=== PATIENT | female | born 1950 | race Caucasian/White ===

== ENCOUNTER 2016-06-28 09:06 | Emergency (ER) | payer MEDICARE ==
[~2016-06-28] VITALS: Ht 165.1 cm; Wt 83.2 kg
[~2016-06-28 09:06] MED LIST: AMBIEN 10MG10 MG PO; AMOXICILLIN 50500 MG PO; AMOXICILLIN 8751 TAB PO; CEFTIN250 M1 PO; CELEBREX 200MG200 MG PO; CEPHALEXIN500 M1 PO; KLONOPIN 0.5MG0.5 MG PO; LORTAB 5/500 501 TAB PO; NO HOME MEDICATIONS; NORCO 325 MG-51 TAB PO; NORCO 325 MG-7.1 TAB PO; PEPCID 20MG TAB20 MG PO; PERCOCET 5/321 UDTAB PO; PREDNISONE20 MG PO; PRILOSEC10 MG PO; PROZAC 10MG10 MG PO; PROZAC 20MG20 MG PO; PYRIDIATE200 MG PO; TRAMADOL50 MG PO
[2016-06-28 09:08] VITALS: BP 140/81; TEMP 98.7
[2016-06-28] MEDS ORDERED: LIPITOR20 MG PO (09:11)
[2016-06-28] MEDS ORDERED: POLYMYXIN B/TRIMETH OS (09:57)
[2016-06-28 10:13] VITALS: PULSE 87
== END 2016-06-28 10:13 | disposition home or self-care (01) ==
LOC: COL.ER 09:06
DX: S05.02XA Injury of conjunctiva and corneal abrasion without foreign body, left eye, initial encounter (principal); X58.XXXA Exposure to other specified factors, initial encounter; Y92.322 Soccer field as the place of occurrence of the external cause; R51 Headache

== ENCOUNTER → 2017-01-13 | Outpatient (CLI) | payer MEDICARE ==
[~2017-01-13] MED LIST changes: +LIPITOR20 MG PO; +POLYMYXIN B/TRIMETH OS
== END ==
LOC: COL.RAD 09:03
DX: Z13.6 Encounter for screening for cardiovascular disorders (principal)

== ENCOUNTER → 2017-01-18 | Outpatient (CLI) | payer MEDICARE | LOC: MC.RAD 11:20 | DX: Z12.31 Encounter for screening mammogram for malignant neoplasm of breast (principal) ==

== ENCOUNTER 2017-08-23 18:11 | Emergency (ER) | payer MEDICARE ==
[~2017-08-23] VITALS: Ht 165.1 cm; Wt 81.8 kg
[2017-08-23 18:19] VITALS: TEMP 100.2
[2017-08-23 18:47] LABS: BASO % 0.5 % (0.0-2.0); EOS # 0.2 (0.0-0.7); EOS % 2.1 % (0-4.0); GRAN # 4.2 (1.4-6.5); HEMATOCRIT 40.5 % (37.0-47.0); HEMOGLOBIN 13.5 g/dl (12.5-16.0); LYMPH # 2.4 (1.2-3.4); LYMPH % 31.2 % (20.0-51.0); MEAN CELL VOLUME 86 fl (80.0-100.0); MEAN CORPUSCULAR HEMOGLOBIN 29 pg (27.0-31.0); MEAN CORPUSCULAR HGB CONC 33 g/dl (33.0-37.0); MEAN PLATELET VOLUME 10.2 fl (7.4-10.4); MONO # 0.9 (0.1-0.6); MONO % 11.1 % (1.7-9.3); PLATELET COUNT 223 K/mm3 (130-400); RED BLOOD COUNT 4.73 M/mm3 (4.10-5.30); REDCELL DISTRIBUTION WIDTH-CV 12.8 % (11.5-14.5)
[2017-08-23 19:02] LABS: ALBUMIN 3.9 gm/dL (3.5-5.0); C-REACTIVE PROTEIN 5.2 mg/dL (0.0-0.9); CALCIUM 9.4 mg/dL (8.4-10.2); CREATININE, serum 0.75 mg/dL (0.52-1.25); POTASSIUM 3.6 mmol/L (3.4-5.0); TOTAL PROTEIN 8.8 gm/dL (6.4-8.2)
[2017-08-23 19:10] LABS: ERYTHROCYTE SEDIMENTATION RATE 57 mm/hr (0-30)
[2017-08-23] MEDS ORDERED: PREDNISONE20 MG PO (19:22)
[2017-08-23 19:39] VITALS: BP 130/81; PULSE 65
== END 2017-08-23 19:40 | disposition home or self-care (01) ==
LOC: COL.ER 18:11
PROVIDERS: Emergency Medicine
DX: M54.2 Cervicalgia (principal); E78.5 Hyperlipidemia, unspecified; Z86.79 Personal history of other diseases of the circulatory system
CPT/HCPCS: J7512

== ENCOUNTER 2018-05-02 16:57 | Inpatient (IN) | payer MEDICARE ==
[~2018-05-02] VITALS: Ht 165.1 cm; Wt 78.7 kg
[2018-05-02 17:22] LABS: BASO % 0.2 % (0.0-2.0); GRAN # 9.9 (1.4-6.5); GRAN % 85.1 % (42.2-75.2); HEMOGLOBIN 14.6 g/dl (12.5-16.0); LYMPH # 1.2 (1.2-3.4); MEAN CELL VOLUME 85 fl (80.0-100.0); MEAN CORPUSCULAR HEMOGLOBIN 28 pg (27.0-31.0); MEAN CORPUSCULAR HGB CONC 32 g/dl (33.0-37.0); MEAN PLATELET VOLUME 11.2 fl (7.4-10.4); MONO # 0.5 (0.1-0.6); PLATELET COUNT 248 K/mm3 (130-400)
[2018-05-02 17:49] LABS: PROTHROMBIN TIME 11.7 SECONDS (9.7-12.8)
[2018-05-02 17:56] LABS: ALANINE AMINOTRANSFERASE 11 U/L (9-52); ALBUMIN 4.3 gm/dL (3.5-5.0); ALKALINE PHOSPHATASE 126 U/L (50-136); ANION GAP 10 mmol/L (7-16); AST,SGOT 22 U/L (15-37); BILIRUBIN,TOTAL 0.5 mg/dL (0.0-1.0); BLOOD UREA NITROGEN 16 mg/dL (7-17); CARBON DIOXIDE 23 mmol/L (22-30); CHLORIDE 108 mmol/L (98-107); CREATINE KINASE 70 U/L (30-135); CREATININE, serum 0.82 mg/dL (0.52-1.25); GLUCOSE 123 mg/dL (74-106); LIPASE 69 U/L (23-300); POTASSIUM 3.7 mmol/L (3.4-5.0); SODIUM 140 mmol/L (137-145); TOTAL PROTEIN 8.3 gm/dL (6.4-8.2)
[2018-05-02 18:12] LABS: TROPONIN-I < 0.012 ng/mL (0.000-0.035)
[2018-05-02 20:02] VITALS: BP 143/67; PULSE 64; TEMP 97.7
[2018-05-03 00:47] VITALS: BP 109/59; PULSE 53; TEMP 97
[2018-05-03 04:30] VITALS: BP 123/69; PULSE 54; TEMP 97.4
[2018-05-03 04:45] LABS: CALCIUM 9.3 mg/dL (8.4-10.2); CREATININE, serum 0.76 mg/dL (0.52-1.25); POTASSIUM 3.8 mmol/L (3.4-5.0)
--- NOTE | 2018-05-03 05:04 | NUR ---
Pt came up to floor fron the ED last night, admission assesssments completed, she has had no further C/O chest pain during the night, VS have remained stable,
[2018-05-03 06:57] LABS: BASO # 0.1 (0.0-0.2); BASO % 0.6 % (0.0-2.0); EOS # 0.1 (0.0-0.7); EOS % 0.8 % (0-4.0); GRAN # 6.6 (1.4-6.5); GRAN % 62.2 % (42.2-75.2); HEMATOCRIT 41.6 % (37.0-47.0); HEMOGLOBIN 13.5 g/dl (12.5-16.0); LYMPH % 28.4 % (20.0-51.0); MEAN CELL VOLUME 86 fl (80.0-100.0); MEAN CORPUSCULAR HEMOGLOBIN 28 pg (27.0-31.0); MEAN CORPUSCULAR HGB CONC 33 g/dl (33.0-37.0); MEAN PLATELET VOLUME 10.8 fl (7.4-10.4); MONO # 0.8 (0.1-0.6); MONO % 7.5 % (1.7-9.3); PLATELET COUNT 235 K/mm3 (130-400); RED BLOOD COUNT 4.82 M/mm3 (4.10-5.30); REDCELL DISTRIBUTION WIDTH-CV 13.2 % (11.5-14.5)
[2018-05-03 07:06] LABS: CHOLESTEROL 264 mg/dL (120-200); CHOLESTEROL RISK RATIO 7.3; HDL CHOLESTEROL 36 mg/dL; LDL CHOLESTEROL 200 mg/dL; TRIGLYCERIDE 139 mg/dL
[2018-05-03 07:17] LABS: TROPONIN-I < 0.012 ng/mL (0.000-0.035)
[2018-05-03 07:40] VITALS: BP 144/90; PULSE 53; TEMP 98.4
--- NOTE | 2018-05-03 08:15 | NUR ---
Assessment complete. Pt sitting up in chair, A&O x 4. Breath sounds CTAB. BS active x 4. Pt reports headache 3 out of 10 on pain scale, PRN Tylenol administered per orders. Pt having slight anxiety with elevated BP, PRN medication administered per orders and pt's request. No further needs reported. Call light in reach.
[2018-05-03 11:41] VITALS: BP 126/54; PULSE 53; TEMP 97.7
--- NOTE | 2018-05-03 14:16 | NUR ---
ADIEL and SW student met with the patient to discuss discharge plan. The patient lives in [place] with her daughter (Viridiana) and three grandchildren. She reports independence with ADLs and does not use any DME. The patient's PCP is Dr. Kiran Hennessy and she receives her medications at the [facility]. She reports no difficulties obtaining her meds. The patient does not have advanced directives, but she was interested in obtaining the form for DPOA-HC. ADIEL provided. The patient plans to return home with her family upon discharge. No additional needs at this time.
[2018-05-03 15:14] VITALS: BP 138/78; PULSE 58; TEMP 97.4
--- NOTE | 2018-05-03 18:15 | NUR ---
Pt sitting up in bed, POC reviewed with pt regarding NPO at midnight for testing in the morning. Pt verbalizes understanding. Call light in reach.
[2018-05-03 19:49] VITALS: BP 135/80; PULSE 60; TEMP 98.2
[2018-05-04] VITALS (20 sets, daily range): BP systolic 11–147; BP diastolic 41–83; PULSE 46–85; TEMP 97.3–98.8
--- NOTE | 2018-05-04 04:31 | NUR ---
PT HAD UNEVENTFUL NOC. NO C/O CHEST PAIN. APPEARED TO HAVE SLEPT WELL. NPO STATUS STARTED AT MIDNIGHT FOR UPCOMING PRCEDURES. NO ISSUES OR CONSERNS VOICED
--- NOTE | 2018-05-04 06:25 | NUR ---
Into talk with pt regarding lexiscan stress test. Pt states she is having a treadmill done. Informed pt of treadmill would include a tracer to be given. Pt states she doesnt want any chemical for the test. Informed Marisel AYON, pts nurse that pt had refused nuclear med stress test. Only wanting to complete a treadmill.
[2018-05-04 06:43] LABS: CALCIUM 9.3 mg/dL (8.4-10.2); CREATININE, serum 0.7 mg/dL (0.52-1.25); POTASSIUM 4.2 mmol/L (3.4-5.0)
--- NOTE | 2018-05-04 06:58 | NUR ---
Report with NANY Flores. Pt reports anxiety increasing after talking about the stress test. PRN medication administered per orders and pt's request.
--- NOTE | 2018-05-04 08:30 | NUR ---
Assessment complete. Pt sitting up in bed, A&O x 3. Breath sounds CTAB. BS active x 4. Pt denies pain at this time. Saline lock IV to right hand patent without s/s of complications. POC reviewed with pt and pt's family. Call light in reach.
--- NOTE | 2018-05-04 09:00 | NUR ---
Heart cath consent obtained, signed by pt's daughter d/t pt receiving anti-anxiety medication this morning. IVF's started to gravity for procedure. Pt to systems testing laboratory technician for procedure via bed.
--- NOTE | 2018-05-04 09:04 | NUR ---
Initial visit; Patient and family thanked Call Center Receptionist for looking in on her and offering prayer and encouragement.
--- NOTE | 2018-05-04 09:19 | NUR ---
ALL MEDICATIONS GIVEN VIA VERBAL ORDER WITH READBACK WITH MD. SEE MERGE FOR ALL ADMIN TIMES. POSITIVE VIJI'S TEST IN THE RIGHT WRIST.
--- NOTE | 2018-05-04 10:29 | NUR ---
REPORT RECEIVED FROM LISSETT AYON ON PATIENT AT 1000, REPORT RECEIVED FROM SELAM AYON FROM [employer]OND LABORER.
--- NOTE | 2018-05-04 10:33 | NUR ---
PT BROUGHT FROM EDITOR MANAGING DIRECTOR VIA BED. PT AWAKE, ORIENTED, AND PLEASANT. PT STATES SHE HAS CHEST PRESSURE SHE RATES 3-4/10. PT DENIES SOB. VS OBTAINED. PT HAS TR BAND PRESENT TO RIGHT WRIST. PUNCTURE SITE CLEAN AND DRY. PT HAS ANGIOMAX INFUSING AT 28ML/HR TO RIGHT AC IV. PT ON ROOM AIR, LUNGS CLEAR, ABD WNL, NO LE EDEMA NOTED. HEART SOUNDS NORMAL.
--- NOTE | 2018-05-04 13:15 | NUR ---
5CC OF AIR REMOVED FROM TR BAND. NO S/S OF BLEEDING, OOZING, OR HEMATOMA. WILL CONTINUE TO MONITOR.
--- NOTE | 2018-05-04 13:30 | NUR ---
ATTEMPTED TO REMOVE AIR FROM TR BAND BUT SITE BEGAN OOZING AFTER FEW MINS OF RELEASING 5CC OF AIR. AIR REINSERTED INTO TR BAND. WILL CONTINUE TO MONITOR.
--- NOTE | 2018-05-04 14:29 | NUR ---
PT RESTING COMFORTABLY AT THIS TIME. DAUGHTER AT BEDSIDE.
--- NOTE | 2018-05-04 14:51 | NUR ---
500ML IVF INFUSED. IV SL
--- NOTE | 2018-05-04 14:51 | NUR ---
3CC OF AIR REMOVED FROM TR BAND. WILL CONTINUE TO MONITOR
--- NOTE | 2018-05-04 15:19 | NUR ---
PT AMBULATED TO TOILET. PT STEADY ON FEET. NO HAT IN TOILET SO UNABLE TO MEASURE URINARY OUTPUT.
--- NOTE | 2018-05-04 19:05 | NUR ---
Bedside report received from NANY Goldstein. Cath site assessed. Tranfer of care at this time.
--- NOTE | 2018-05-04 20:00 | NUR ---
Assessment complete at this time. Patient is resting in bed with no complaints of pain. She requests to get up to the restroom. Detached monitoring equipment. while up she brushed her dentures and did her own oral care. Patient returns to bed. No further needs at this time. Will continue to monitor. Call light within reach.
[2018-05-05] VITALS: BP 114/60; PULSE 73; TEMP 98.4
--- NOTE | 2018-05-05 | NUR ---
Patient sleeping in bed at this time. Easily awakens. Patient is having no pain or discomfort. VS stable. No current needs at this time. Will continue to monitor. Call light within reach.
[2018-05-05 04:00] VITALS: BP 121/78; PULSE 55; PULSE 81; TEMP 97.6
--- NOTE | 2018-05-05 04:00 | NUR ---
Patient continues to sleep at this time. Vitals remain stable. No complaints of pain. No other needs at this time. Will continue to monitor. Call light within reach.
[2018-05-05 05:17] LABS: BASO % 0.5 % (0.0-2.0); EOS # 0.1 (0.0-0.7); EOS % 1.3 % (0-4.0); GRAN # 5.7 (1.4-6.5); GRAN % 66.5 % (42.2-75.2); HEMATOCRIT 42.5 % (37.0-47.0); HEMOGLOBIN 13.7 g/dl (12.5-16.0); LYMPH # 1.9 (1.2-3.4); LYMPH % 22.8 % (20.0-51.0); MEAN CELL VOLUME 86 fl (80.0-100.0); MEAN CORPUSCULAR HEMOGLOBIN 28 pg (27.0-31.0); MEAN CORPUSCULAR HGB CONC 32 g/dl (33.0-37.0); MEAN PLATELET VOLUME 10.8 fl (7.4-10.4); MONO # 0.7 (0.1-0.6); MONO % 8.3 % (1.7-9.3); PLATELET COUNT 237 K/mm3 (130-400); RED BLOOD COUNT 4.93 M/mm3 (4.10-5.30); REDCELL DISTRIBUTION WIDTH-CV 13.2 % (11.5-14.5)
[2018-05-05 05:29] LABS: CALCIUM 9.2 mg/dL (8.4-10.2); CREATININE, serum 0.79 mg/dL (0.52-1.25); POTASSIUM 4.1 mmol/L (3.4-5.0)
--- NOTE | 2018-05-05 07:45 | NUR ---
Bedside report received from NANY Saavedra. Right radial puncture site examined. Patient denies chest pain or shortness of breath. Care of patient assumed at this time.
--- NOTE | 2018-05-05 07:50 | NUR ---
Bedside report given to NANY Neumann. Cath site inspected, no change. Transfer of care at this time.
[2018-05-05 07:58] VITALS: BP 117/73; PULSE 66; TEMP 97.7
--- NOTE | 2018-05-05 08:02 | NUR ---
Patient assessment complete. Patient is resting in bed, denies any chest pain or shortness of breath. Right radial site is clean, dry, and intact, no edema or firmness noted. Radial and pedal pulses palpable 2+. No complaints at this time. Will continue to monitor.
[2018-05-05] MEDS ORDERED: NITROSTAT0.4 MG/TAB SL (08:45)
[2018-05-05] MEDS ORDERED: ASPIRIN 81M81 MG/TA2 PO (08:45)
[2018-05-05] MEDS ORDERED: BRILINTA90 MG PO (08:45)
[2018-05-05] MEDS ORDERED: CRESTOR20 MG PO (08:46)
--- NOTE | 2018-05-05 09:47 | NUR ---
Initial visit (this stay); Patient and daughter thanked Nursery School Teacher for looking in on her and stated she has given her life and all it entails up to God and is at peace as to what "He" has planned for her. Nursery School Teacher offered God's blessings.
[2018-05-05 12:00] VITALS: BP 124/75; PULSE 63; TEMP 97.6; TEMP 97.8
--- NOTE | 2018-05-05 13:35 | NUR ---
Patient discharge paperwork complete. Right AC IV discontinued. Patient denies any chest pain or shortness of breath. No issues or concerns at this time. Patient states she understands all new medications and discharge instructions. Patient's daughter at bedside, veralizes understanding and agreement to discharge material as well.
--- NOTE | 2018-05-05 13:44 | NUR ---
Patient taken to exit by wheelchair. All belongings transported with patient. Patient's daughter picks her up. No issues at this time.
== END 2018-05-05 13:40 | disposition home or self-care (01) | DRG 247 ==
LOC: COL.ER 16:57 → MEDICAL 18:41 → ICU 05-04 10:31
PROVIDERS: Emergency Medicine; Internal Medicine Cardiovascular Disease; Nurse Practitioner; Nurse Practitioner Family; ADMIT Family Medicine
PROC: 027034Z Dilation of Coronary Artery, One Artery with Drug-eluting Intraluminal Device, Percutaneous Approach (ICD-10-PCS; principal; 2018-05-04)
PROC: B2111ZZ Fluoroscopy of Multiple Coronary Arteries using Low Osmolar Contrast (ICD-10-PCS; 2018-05-04)
PROC: B2151ZZ Fluoroscopy of Left Heart using Low Osmolar Contrast (ICD-10-PCS; 2018-05-04)
PROC: 4A023N7 Measurement of Cardiac Sampling and Pressure, Left Heart, Percutaneous Approach (ICD-10-PCS; 2018-05-04)
DX: I25.110 Atherosclerotic heart disease of native coronary artery with unstable angina pectoris (principal); I10 Essential (primary) hypertension; Z91.14 Patient's other noncompliance with medication regimen; M31.6 Other giant cell arteritis; M79.7 Fibromyalgia; F41.9 Anxiety disorder, unspecified; I49.3 Ventricular premature depolarization; E78.5 Hyperlipidemia, unspecified
CPT/HCPCS: 99233-AI; 99239; C1725; C1769; C1874; C1887; C9600; G0378; J0583; J1200; J1644; J1650; J2405; J3010; J7030; Q9967

== ENCOUNTER 2018-07-28 20:45 | Emergency (ER) | payer MEDICARE ==
[~2018-07-28] VITALS: Ht 165.1 cm; Wt 72.3 kg
[~2018-07-28 20:45] MED LIST changes: +ASPIRIN 81M81 MG/TA2 PO; +BRILINTA90 MG PO; +CRESTOR20 MG PO; +NITROSTAT0.4 MG/TAB SL
[2018-07-28 20:47] VITALS: BP 155/79; TEMP 98.1
[2018-07-28] MEDS ORDERED: KAPSPARGO SPRIN25 MG PO (20:50)
[2018-07-28 21:29] LABS: HEMATOCRIT 41.4 % (37.0-47.0); HEMOGLOBIN 13.5 g/dl (12.5-16.0); MEAN CELL VOLUME 85 fl (80.0-100.0); MEAN CORPUSCULAR HEMOGLOBIN 28 pg (27.0-31.0); MEAN CORPUSCULAR HGB CONC 33 g/dl (33.0-37.0); MEAN PLATELET VOLUME 10.8 fl (7.4-10.4); PLATELET COUNT 230 K/mm3 (130-400); RED BLOOD COUNT 4.89 M/mm3 (4.10-5.30); REDCELL DISTRIBUTION WIDTH-CV 13.5 % (11.5-14.5)
[2018-07-28 21:32] LABS: PROTHROMBIN TIME 11.5 SECONDS (9.7-12.8)
[2018-07-28 21:35] LABS: PARTIAL THROMBOPLASTIN TIME 38.2 SECONDS (26.0-37.0)
[2018-07-28 22:16] VITALS: PULSE 59
== END 2018-07-28 22:17 | disposition home or self-care (01) ==
LOC: COL.ER 20:45
PROVIDERS: Emergency Medicine
DX: S50.01XA Contusion of right elbow, initial encounter (principal); I25.10 Atherosclerotic heart disease of native coronary artery without angina pectoris; E78.5 Hyperlipidemia, unspecified; Z79.82 Long term (current) use of aspirin; Z95.5 Presence of coronary angioplasty implant and graft; X58.XXXA Exposure to other specified factors, initial encounter

== ENCOUNTER 2021-02-25 12:55 | Outpatient (CLI) | payer MEDICARE ==
[2021-02-25] VITALS (7 sets, daily range): BP systolic 143–157; BP diastolic 72–84; PULSE 56–70; TEMP 97.3
[~2021-02-25] VITALS: Ht 165.1 cm; Wt 80.4 kg
[~2021-02-25 12:55] MED LIST changes: +KAPSPARGO SPRIN25 MG PO
[2021-02-25] MEDS ORDERED: ZOLOFT 50MG50 MG PO (14:42)
--- NOTE | 2021-02-25 15:59 | NUR ---
Pt tolerated infusion and 1 hr obs period without issue. INT DC'd with catheter intact. Pt escorted out to ED entrance.
== END 2021-02-25 16:00 | disposition home or self-care (01) ==
LOC: EUO 12:55
DX: U07.1 COVID-19 (principal); E66.9 Obesity, unspecified; I25.10 Atherosclerotic heart disease of native coronary artery without angina pectoris
CPT/HCPCS: M0245

== ENCOUNTER → 2021-09-10 | Outpatient (CLI) | payer MEDICARE ==
[~2021-09-10] MED LIST changes: +ZOLOFT 50MG50 MG PO
== END ==
LOC: COL.PUL 07:49
DX: K80.20 Calculus of gallbladder without cholecystitis without obstruction (principal); R76.8 Other specified abnormal immunological findings in serum; R91.1 Solitary pulmonary nodule
CPT/HCPCS: Q9967

== ENCOUNTER → 2021-09-23 | Outpatient (CLI) | payer MEDICARE | LOC: COL.RAD 08:37 | DX: K80.20 Calculus of gallbladder without cholecystitis without obstruction (principal) ==

== ENCOUNTER → 2021-12-12 | Outpatient (CLI) | payer MEDICARE | LOC: COL.RAD 13:47 | DX: K80.20 Calculus of gallbladder without cholecystitis without obstruction (principal); R91.1 Solitary pulmonary nodule | CPT/HCPCS: Q9967 ==

== ENCOUNTER → 2023-01-01 | Outpatient (CLI) | payer MEDICARE ==
[~2023-01-01] MED LIST changes: +CRESTOR40 MG PO; +EUTHYROX25 MCG PO; +NIRAVAM0.25 MG PO; +ZETIA 10MG TAB10 MG PO; +ZOLOFT 100MG100 MG PO
== END ==
LOC: COL.RAD 10:32
DX: R91.1 Solitary pulmonary nodule (principal)
CPT/HCPCS: Q9967